=== PATIENT | female | born 1995 | race Hispanic/Latino ===

== ENCOUNTER 2018-04-10 10:17 | Emergency (ER) | payer MEDICAID, OTHER | END 2018-04-10 11:01 | disposition home or self-care (01) | LOC: EDH 10:17 | DX: S63.592A Other specified sprain of left wrist, initial encounter (principal); X50.0XXA Overexertion from strenuous movement or load, initial encounter; Y93.89 Activity, other specified; Y92.89 Other specified places as the place of occurrence of the external cause; Y99.8 Other external cause status | CPT/HCPCS: 29125 ==